=== PATIENT | male | born 1945 | race Caucasian/White ===

== ENCOUNTER 2016-12-29 12:48 | Inpatient (IN) | payer MEDICARE, MEDICAID ==
[~2016-12-29] VITALS: Ht 182.9 cm; Wt 51.5 kg
[2016-12-29] MEDS ORDERED: SODIUM CHLORIDE 0.9% 1,000 ML IVB ONE (14:19)
[2016-12-29 14:24] LABS: Basophils # (auto) 0 uL; Eosinophils # (auto) 0 uL; Hematocrit 38.1 % (41.0-53.0); Hemoglobin 12.5 g/dL (13.5-17.5); Lymphocytes # (auto) 0.3 uL; Lymphocytes % (auto) 2.3 % (10.0-50.0); Mean Corpuscular Hemoglobin 30.4 pg (28.0-32.0); Mean Corpuscular Hgb Conc. 32.9 g/dL (32.0-36.0); Mean Corpuscular Volume 92.6 fL (80.0-100.0); Mean Platelet Volume 7.9 fL (7.4-10.4); Monocytes # (auto) 0.3 uL; Monocytes % (auto) 2.8 % (0.0-12.0); Neutrophils # (auto) 10.5 uL; Neutrophils % (auto) 94.9 % (37.0-80.0); Platelet Count (auto) 436 10^3/uL (140-450); SUSPECT VIEW TRANSMISSION
[2016-12-29 15:05] LABS: Magnesium 2.4 mg/dL (1.6-2.6)
[2016-12-29 15:19] LABS: Albumin 1.4 g/dL (3.4-5.0); BUN/Creatinine Ratio 43.1; Bilirubin, Total 0.7 mg/dL (0.2-1.0); Calcium 8.4 mg/dL (8.5-10.1); Total Protein 5.9 g/dL (6.4-8.2)
[2016-12-29] MEDS ORDERED: cefTRIAXone 1GM/50ML D5W 50 ML IV ONE (15:45)
[2016-12-29] MEDS ORDERED: PROCHLORPERAZINE EDISYLATE 5 MG/ML 2ML VIAL IV PRN (16:00)
[2016-12-29] MEDS: SODIUM CHLORIDE 0.9% 1,000 ML IV SCH ×2 (16:00→18:42)
[2016-12-29] MEDS ORDERED: NITROGLYCERIN 0.4 MG SL TAB SL PRN (16:00)
[2016-12-29] MEDS ORDERED: VANCOMYCIN PER PHARMACY 0 MG IV SCH (16:00)
[2016-12-29] MEDS ORDERED: HYDROcodone-ACET 5/325MG TAB PO PRN (16:00)
[2016-12-29] MEDS ORDERED: ALBUTEROL SULF 2.5 MG/0.5ML(0.5%) NEB SOLN NEB PRN (16:00)
[2016-12-29] MEDS ORDERED: VANCOMYCIN 1GM/250ML D5W 250 ML IV ONE (16:00)
[2016-12-29] MEDS ORDERED: AZITHROMYCIN 500MG/D5W 250ML 250 ML IV ONE ×2 (16:00→17:00)
[2016-12-29] MEDS ORDERED: MORPHINE SULF INJ 2 MG/ML SYRINGE 1ML IV PRN ×2 (16:00)
[2016-12-29] MEDS ORDERED: TEMAZEPAM 15 MG CAP PO PRN (16:00)
[2016-12-29] MEDS ORDERED: PIPERACILLIN-TAZOB 3.375GM 100 ML IV ONE ×2 (16:00→20:00)
[2016-12-29] MEDS ORDERED: ACETAMINOPHEN 500 MG TAB PO PRN (16:00)
[2016-12-29] MEDS ORDERED: LORazepam 0.5 MG TAB PO PRN (16:00)
[2016-12-29] MEDS ORDERED: DEXTROSE (50%) 50ML SYRG IV PRN (16:00)
[2016-12-29 16:14] LABS: Urine Bilirubin Negative (Negative); Urine Blood Negative /uL (Negative); Urine Color Yellow (Yellow); Urine Glucose Normal (Normal); Urine Ketone Negative (Negative); Urine Mucus FEW (None Seen); Urine Nitrite Negative (Negative); Urine RBC <1 /hpf (0 - 3); Urine pH 5.5 (5.0-8.0)
[2016-12-29] MEDS: ALBUTEROL SULF 2.5 MG/0.5ML(0.5%) NEB SOLN NEB SCH (18:39)
[2016-12-29] MEDS: VANCOMYCIN 500 MG in D5W 5% 100 ML IV SCH (19:59)
[2016-12-29 22:00] VITALS: BP 80/43
[2016-12-29] MEDS ORDERED: Fibersource Hn 1 Liter PEG ONE (22:00)
[2016-12-29] MEDS ORDERED: ALBUMIN 5% 250 ML IV ONE (22:45)
[2016-12-30] MEDS: ACCU-CHEK COMFORT CURVE STRIP VI SCH ×5 (00:18→23:55)
[2016-12-30] MEDS: ALBUTEROL SULF 2.5 MG/0.5ML(0.5%) NEB SOLN NEB SCH ×5 (01:43→22:37)
[2016-12-30] MEDS: PIPERACILLIN-TAZOB 3.375GM 100 ML IV SCH ×4 (02:14→19:39)
[2016-12-30] MEDS ORDERED: SODIUM CHLORIDE 0.9% 500 ML IV ONE (02:45)
[2016-12-30 05:00] VITALS: BP 85/64
[2016-12-30 05:44] LABS: Hematocrit 27.9 % (41.0-53.0); Hemoglobin 9.2 g/dL (13.5-17.5); Mean Corpuscular Hemoglobin 30.8 pg (28.0-32.0); Mean Corpuscular Volume 93.3 fL (80.0-100.0); Mean Platelet Volume 8.3 fL (7.4-10.4); Platelet Count (auto) 325 10^3/uL (140-450); Red Cell Distribution Width 13.2 % (11.6-16.0); SUSPECT VIEW TRANSMISSION; White Blood Cell 9.1 10^3/uL (4.4-10.8)
[2016-12-30 05:50] LABS: Myelocytes % 0; Promyelocytes % 0; Reactive Lymphocytes 0
[2016-12-30 05:58] LABS: Albumin 1.3 g/dL (3.4-5.0); Calcium 7.4 mg/dL (8.5-10.1); Potassium 3.2 mmol/L (3.5-5.1)
[2016-12-30 06:02] LABS: BUN/Creatinine Ratio 43.1
[2016-12-30 06:04] LABS: Bilirubin, Total 0.5 mg/dL (0.2-1.0); Total Protein 4.8 g/dL (6.4-8.2)
[2016-12-30 09:00] VITALS: BP 98/40
[2016-12-30] MEDS: SODIUM CHLORIDE 0.9% 1,000 ML IV SCH ×2 (10:28→17:20)
[2016-12-30] MEDS ORDERED: AZITHROMYCIN 500MG/D5W 250ML 250 ML IV SCH (11:00)
[2016-12-30 12:03] LABS: Giant Platelets Few; Hypochromia Slight; Metamyelocytes % 1; Platelet Clumps FEW; Platelet Estimate Adequate
[2016-12-30] MEDS ORDERED: HYD2T GT (12:22)
[2016-12-30] MEDS ORDERED: HYDR2TAB2 PEG (12:22)
[2016-12-30] MEDS ORDERED: MISCCAP66 GT (12:24)
[2016-12-30] MEDS ORDERED: SCOP1.5D TD (12:28)
[2016-12-30 12:49] VITALS: BP 84/63
[2016-12-30] MEDS ORDERED: IPRATROPIUM BROM 0.5 MG/2.5ML INH SOL NEB SCH (14:00)
[2016-12-30] MEDS ORDERED: ALBUTEROL SULF 2.5 MG/0.5ML(0.5%) NEB SOLN NEB SCH (14:00)
[2016-12-30] MEDS ORDERED: ACETYLCYSTEINE 20%(200MG/ML) SOL 4ML NEB SCH (14:00)
[2016-12-30 16:53] VITALS: BP 87/43
[2016-12-30] MEDS: IPRATROPIUM BROM 0.5 MG/2.5ML INH SOL NEB SCH ×2 (18:16→22:37)
[2016-12-30] MEDS: VANCOMYCIN 500 MG in D5W 5% 100 ML IV SCH (19:39)
[2016-12-30 22:00] VITALS: BP 98/60
[2016-12-30] MEDS: Fibersource Hn 1 Liter GT SCH (22:21)
[2016-12-30] MEDS: ACETYLCYSTEINE 20%(200MG/ML) SOL 4ML NEB SCH (22:37)
[2016-12-31] MEDS: PIPERACILLIN-TAZOB 3.375GM 100 ML IV SCH ×4 (01:54→19:49)
[2016-12-31] MEDS: ALBUTEROL SULF 2.5 MG/0.5ML(0.5%) NEB SOLN NEB SCH ×6 (02:43→22:10)
[2016-12-31] MEDS: IPRATROPIUM BROM 0.5 MG/2.5ML INH SOL NEB SCH ×6 (02:43→22:10)
[2016-12-31 05:00] VITALS: BP 97/48
[2016-12-31 05:46] LABS: Basophils # (auto) 0 uL; Eosinophils # (auto) 0 uL; Eosinophils % (auto) 0.1 % (0.0-7.0); Hematocrit 27.2 % (41.0-53.0); Hemoglobin 8.9 g/dL (13.5-17.5); Lymphocytes # (auto) 0.3 uL; Lymphocytes % (auto) 3.2 % (10.0-50.0); Mean Corpuscular Hgb Conc. 32.7 g/dL (32.0-36.0); Mean Corpuscular Volume 91.9 fL (80.0-100.0); Monocytes # (auto) 0.1 uL; Neutrophils # (auto) 7.6 uL; Neutrophils % (auto) 95.7 % (37.0-80.0); Platelet Count (auto) 289 10^3/uL (140-450); Red Cell Distribution Width 13.1 % (11.6-16.0)
[2016-12-31 06:12] LABS: Albumin 1.2 g/dL (3.4-5.0); BUN/Creatinine Ratio 28.4; Calcium 7.6 mg/dL (8.5-10.1)
[2016-12-31] MEDS: ACCU-CHEK COMFORT CURVE STRIP VI SCH ×4 (06:13→23:50)
[2016-12-31 06:15] LABS: Bilirubin, Total 0.4 mg/dL (0.2-1.0); Total Protein 4.8 g/dL (6.4-8.2)
[2016-12-31 06:29] LABS: B-Type Natriuretic Peptide 66.35 pg/mL (0-100)
[2016-12-31 07:00] LABS: Potassium 2.7 mmol/L (3.5-5.1)
[2016-12-31] MEDS: ACETYLCYSTEINE 20%(200MG/ML) SOL 4ML NEB SCH ×3 (07:08→22:10)
[2016-12-31 07:23] LABS: Temperature: 22.7 C (20.0-25.0)
[2016-12-31 08:56] VITALS: BP 84/52
[2016-12-31] MEDS: SODIUM CHLORIDE 0.9% 1,000 ML IV SCH ×2 (09:30→21:25)
[2016-12-31] MEDS ORDERED: POTASSIUM CHL 10% (20 MEQ/15ML) ORAL SOLN GT ONE ×2 (09:45→14:00)
[2016-12-31] MEDS: Fibersource Hn 1 Liter GT SCH ×2 (10:43→22:25)
[2016-12-31 12:32] VITALS: BP 87/51
[2016-12-31] MEDS ORDERED: LACTULOSE 20Gm/30ML SOLN PO ONE (14:00)
[2016-12-31] MEDS ORDERED: LACTULOSE 20Gm/30ML SOLN PO PRN (14:00)
[2016-12-31 17:00] VITALS: BP 87/52
[2016-12-31] MEDS: PRO-STAT 64 30ML PO SCH (18:16)
[2016-12-31] MEDS: VANCOMYCIN 500 MG in D5W 5% 100 ML IV SCH (19:49)
[2016-12-31 22:00] VITALS: BP 90/50
[2016-12-31] MEDS: ASCORBIC ACID 500 MG TAB PO SCH (22:25)
[2017-01-01] MEDS: IPRATROPIUM BROM 0.5 MG/2.5ML INH SOL NEB SCH ×6 (02:21→22:08)
[2017-01-01] MEDS: ALBUTEROL SULF 2.5 MG/0.5ML(0.5%) NEB SOLN NEB SCH ×6 (02:21→22:08)
[2017-01-01] MEDS: PIPERACILLIN-TAZOB 3.375GM 100 ML IV SCH ×4 (03:33→20:39)
[2017-01-01 05:00] VITALS: BP 89/47
[2017-01-01] MEDS: ACCU-CHEK COMFORT CURVE STRIP VI SCH ×3 (05:44→18:13)
[2017-01-01] MEDS: ACETYLCYSTEINE 20%(200MG/ML) SOL 4ML NEB SCH ×3 (06:00→22:08)
[2017-01-01 06:13] LABS: Basophils # (auto) 0 uL; Basophils % (auto) 0.1 % (0.0-2.0); Eosinophils # (auto) 0 uL; Eosinophils % (auto) 0.2 % (0.0-7.0); Hematocrit 28.2 % (41.0-53.0); Hemoglobin 9.2 g/dL (13.5-17.5); Lymphocytes # (auto) 0.4 uL; Lymphocytes % (auto) 5.8 % (10.0-50.0); Mean Corpuscular Hemoglobin 30.3 pg (28.0-32.0); Mean Corpuscular Hgb Conc. 32.8 g/dL (32.0-36.0); Mean Corpuscular Volume 92.4 fL (80.0-100.0); Mean Platelet Volume 8.1 fL (7.4-10.4); Monocytes # (auto) 0 uL; Monocytes % (auto) 0.3 % (0.0-12.0); Neutrophils # (auto) 6.1 uL; Neutrophils % (auto) 93.6 % (37.0-80.0); Platelet Count (auto) 292 10^3/uL (140-450); Red Cell Distribution Width 13.1 % (11.6-16.0); White Blood Cell 6.5 10^3/uL (4.4-10.8)
[2017-01-01 06:31] LABS: BUN/Creatinine Ratio 32.4; Calcium 7.9 mg/dL (8.5-10.1); Potassium 3.6 mmol/L (3.5-5.1)
[2017-01-01 08:25] VITALS: BP 91/50
[2017-01-01 09:00] VITALS: BP 91/50
[2017-01-01] MEDS: ASCORBIC ACID 500 MG TAB PO SCH ×2 (10:00→22:00)
[2017-01-01] MEDS: MULTIPLE VITAMIN TAB PO SCH (10:00)
[2017-01-01] MEDS: SODIUM CHLORIDE 0.9% 1,000 ML IV SCH ×2 (10:31→22:16)
[2017-01-01] MEDS: Fibersource Hn 1 Liter GT SCH ×2 (11:06→22:00)
[2017-01-01] MEDS: PRO-STAT 64 30ML PO SCH ×2 (11:06→18:00)
[2017-01-01 12:51] VITALS: BP 105/54
[2017-01-01 16:52] VITALS: BP 81/47
[2017-01-01 21:59] VITALS: BP 91/49
[2017-01-02] VITALS (7 sets, daily range): BP systolic 81–101; BP diastolic 47–63
[2017-01-02] MEDS: ACCU-CHEK COMFORT CURVE STRIP VI SCH ×3 (00:13→11:52)
[2017-01-02] MEDS: PIPERACILLIN-TAZOB 3.375GM 100 ML IV SCH ×2 (01:27→09:28)
[2017-01-02] MEDS: ALBUTEROL SULF 2.5 MG/0.5ML(0.5%) NEB SOLN NEB SCH ×6 (02:30→22:51)
[2017-01-02] MEDS: IPRATROPIUM BROM 0.5 MG/2.5ML INH SOL NEB SCH ×6 (02:30→22:51)
[2017-01-02] MEDS: ACETYLCYSTEINE 20%(200MG/ML) SOL 4ML NEB SCH ×3 (05:54→22:52)
[2017-01-02 06:05] LABS: Basophils # (auto) 0 uL; Eosinophils # (auto) 0 uL; Eosinophils % (auto) 0.3 % (0.0-7.0); Hematocrit 29.7 % (41.0-53.0); Hemoglobin 9.7 g/dL (13.5-17.5); Lymphocytes # (auto) 0.4 uL; Lymphocytes % (auto) 6.3 % (10.0-50.0); Mean Corpuscular Hemoglobin 30.2 pg (28.0-32.0); Mean Corpuscular Hgb Conc. 32.7 g/dL (32.0-36.0); Mean Corpuscular Volume 92.2 fL (80.0-100.0); Mean Platelet Volume 7.9 fL (7.4-10.4); Monocytes # (auto) 0.1 uL; Monocytes % (auto) 0.8 % (0.0-12.0); Neutrophils % (auto) 92.6 % (37.0-80.0); Platelet Count (auto) 259 10^3/uL (140-450); White Blood Cell 6.5 10^3/uL (4.4-10.8)
[2017-01-02] MEDS: PRO-STAT 64 30ML PO SCH ×2 (08:00→18:00)
[2017-01-02] MEDS: MULTIPLE VITAMIN TAB PO SCH (09:28)
[2017-01-02] MEDS: Fibersource Hn 1 Liter GT SCH ×2 (09:29→22:00)
[2017-01-02] MEDS: ASCORBIC ACID 500 MG TAB PO SCH ×2 (10:00→22:43)
[2017-01-02] MEDS: LEVOFLOXACIN 500MG 100 ML IV SCH (11:07)
[2017-01-02] MEDS: SODIUM CHLORIDE 0.9% 1,000 ML IV SCH (13:13)
[2017-01-02] MEDS: methylPREDNISolone SOD SUCC 40 MG/ML VL IV SCH (22:44)
[2017-01-03] MEDS: SODIUM CHLORIDE 0.9% 1,000 ML IV SCH ×2 (02:31→18:35)
[2017-01-03] MEDS: ALBUTEROL SULF 2.5 MG/0.5ML(0.5%) NEB SOLN NEB SCH ×6 (02:36→22:22)
[2017-01-03] MEDS: IPRATROPIUM BROM 0.5 MG/2.5ML INH SOL NEB SCH ×6 (02:36→22:22)
[2017-01-03 05:00] VITALS: BP 88/51
[2017-01-03] MEDS: ACETYLCYSTEINE 20%(200MG/ML) SOL 4ML NEB SCH ×2 (06:13→22:23)
[2017-01-03] MEDS: PRO-STAT 64 30ML PO SCH ×2 (08:00→18:00)
[2017-01-03 09:00] VITALS: BP 123/67
[2017-01-03] MEDS: ASCORBIC ACID 500 MG TAB PO SCH ×2 (10:00→21:13)
[2017-01-03] MEDS: MULTIPLE VITAMIN TAB PO SCH (10:00)
[2017-01-03] MEDS: Fibersource Hn 1 Liter GT SCH ×2 (10:54→21:13)
[2017-01-03] MEDS: FAMOTIDINE (10MG/ML) 2ML VL IV SCH (10:55)
[2017-01-03] MEDS: methylPREDNISolone SOD SUCC 40 MG/ML VL IV SCH ×2 (10:55→21:12)
[2017-01-03] MEDS: LEVOFLOXACIN 500MG 100 ML IV SCH (10:55)
[2017-01-03 13:00] VITALS: BP 99/52
[2017-01-03 16:27] VITALS: BP 121/75
[2017-01-03 21:44] VITALS: BP 100/56
[2017-01-04] MEDS: ALBUTEROL SULF 2.5 MG/0.5ML(0.5%) NEB SOLN NEB SCH ×4 (02:26→14:04)
[2017-01-04] MEDS: IPRATROPIUM BROM 0.5 MG/2.5ML INH SOL NEB SCH ×4 (02:26→14:04)
[2017-01-04 04:48] VITALS: BP 95/63
[2017-01-04] MEDS: SODIUM CHLORIDE 0.9% 1,000 ML IV SCH (05:11)
[2017-01-04 05:59] LABS: Basophils # (auto) 0 uL; Eosinophils # (auto) 0 uL; Eosinophils % (auto) 0.1 % (0.0-7.0); Hematocrit 29.7 % (41.0-53.0); Hemoglobin 9.6 g/dL (13.5-17.5); Lymphocytes # (auto) 0.3 uL; Lymphocytes % (auto) 7.8 % (10.0-50.0); Mean Corpuscular Hgb Conc. 32.3 g/dL (32.0-36.0); Mean Corpuscular Volume 92.8 fL (80.0-100.0); Mean Platelet Volume 7.8 fL (7.4-10.4); Monocytes # (auto) 0.2 uL; Monocytes % (auto) 3.6 % (0.0-12.0); Neutrophils # (auto) 3.8 uL; Neutrophils % (auto) 88.5 % (37.0-80.0); Platelet Count (auto) 259 10^3/uL (140-450); White Blood Cell 4.4 10^3/uL (4.4-10.8)
[2017-01-04 06:22] LABS: BUN/Creatinine Ratio 29.6; Magnesium 2.1 mg/dL (1.6-2.6); Potassium 4.4 mmol/L (3.5-5.1)
[2017-01-04] MEDS: ACETYLCYSTEINE 20%(200MG/ML) SOL 4ML NEB SCH ×2 (06:29→14:04)
[2017-01-04] MEDS: PRO-STAT 64 30ML PO SCH (08:00)
[2017-01-04 09:00] VITALS: BP 99/53
[2017-01-04] MEDS: LEVOFLOXACIN 500MG 100 ML IV SCH (09:57)
[2017-01-04] MEDS: ASCORBIC ACID 500 MG TAB PO SCH (09:57)
[2017-01-04] MEDS: methylPREDNISolone SOD SUCC 40 MG/ML VL IV SCH (09:57)
[2017-01-04] MEDS: Fibersource Hn 1 Liter GT SCH (09:57)
[2017-01-04] MEDS: FAMOTIDINE (10MG/ML) 2ML VL IV SCH (09:57)
[2017-01-04] MEDS: MULTIPLE VITAMIN TAB PO SCH (09:57)
[2017-01-04 10:19] VITALS: BP 95/63
[2017-01-04] MEDS ORDERED: SACC250C PO (11:32)
[2017-01-04] MEDS ORDERED: LEVO500T3 PO (11:32)
[2017-01-04 13:00] VITALS: BP 103/57
[2017-01-04 13:30] VITALS: BP 99/53
[2017-01-04] MEDS ORDERED: PRENATAL VITAMIN TAB PO SCH (22:00)
[2017-01-05] MEDS ORDERED: FAMOTIDINE 20 MG TAB PO SCH (10:00)
[2017-01-05] MEDS ORDERED: FLORASTOR (S. BOULARDII) 250 MG CAP PO SCH (10:00)
[2017-01-05] MEDS ORDERED: LEVOFLOXACIN 500 MG TAB PO SCH (10:00)
== END 2017-01-04 17:19 | DRG 871 ==
LOC: ER 12:48 → TELE 12:49 → TELE-WESTW 17:23
PROVIDERS: ADMIT Internal Medicine; ATTEND Internal Medicine
DX: A41.9 Sepsis, unspecified organism (principal); E43 Unspecified severe protein-calorie malnutrition; J96.01 Acute respiratory failure with hypoxia; J15.8 Pneumonia due to other specified bacteria; E87.1 Hypo-osmolality and hyponatremia; J44.0 Chronic obstructive pulmonary disease with (acute) lower respiratory infection; Z68.1 Body mass index [BMI] 19.9 or less, adult; L89.152 Pressure ulcer of sacral region, stage 2; R13.10 Dysphagia, unspecified; E86.0 Dehydration; E87.6 Hypokalemia; D63.8 Anemia in other chronic diseases classified elsewhere; Z82.49 Family history of ischemic heart disease and other diseases of the circulatory system; Z83.3 Family history of diabetes mellitus; Z93.1 Gastrostomy status; Z92.3 Personal history of irradiation; Z85.819 Personal history of malignant neoplasm of unspecified site of lip, oral cavity, and pharynx; Z80.9 Family history of malignant neoplasm, unspecified
CPT/HCPCS: 36415; 71010; 71020; 80048; 80053; 80320; 81001; 82140; 82270; 82962; 83036; 83605; 83735; 83880; 84443; 84484; 85007; 85025; 85027; 87040; 87070; 87077; 87186; 87205; 92610; 93005; 94640; 94761; 96361; 96365; 96367; 97001; 97530; J0696; J1956; J2543; J3490; J7060

== ENCOUNTER 2017-02-04 19:04 | Inpatient (IN) | payer MEDICARE, MEDICAID ==
[~2017-02-04] VITALS: Ht 182.9 cm; Wt 54.8 kg
[~2017-02-04 19:04] MED LIST: HYDR2TAB2 PEG; LEVO500T3 PO; MISCCAP66 GT; SACC250C PO; SCOP1.5D TD
[2017-02-04] MEDS ORDERED: IOHEXOL 300 MG/ML 100ML BOTTLE IJ ONE (20:46)
[2017-02-04 21:03] LABS: Basophils # (auto) 0 uL; Basophils % (auto) 0.6 % (0.0-2.0); Eosinophils # (auto) 0 uL; Eosinophils % (auto) 0.2 % (0.0-7.0); Hematocrit 28.7 % (41.0-53.0); Hemoglobin 9.5 g/dL (13.5-17.5); Lymphocytes # (auto) 0.7 uL; Lymphocytes % (auto) 11.2 % (10.0-50.0); Mean Corpuscular Hemoglobin 29.9 pg (28.0-32.0); Mean Corpuscular Volume 90.5 fL (80.0-100.0); Mean Platelet Volume 7.1 fL (7.4-10.4); Monocytes # (auto) 0.5 uL; Monocytes % (auto) 8.4 % (0.0-12.0); Neutrophils # (auto) 5.2 uL; Neutrophils % (auto) 79.6 % (37.0-80.0); Platelet Count (auto) 551 10^3/uL (140-450); Red Cell Distribution Width 15.2 % (11.6-16.0); White Blood Cell 6.5 10^3/uL (4.4-10.8)
[2017-02-04] MEDS ORDERED: methylPREDNISolone SOD SUCC 125 MG/2 ML VL IV ONE (21:15)
[2017-02-04] MEDS ORDERED: IPRATROPIUM BROM 0.5 MG/2.5ML INH SOL NEB ONE (21:15)
[2017-02-04] MEDS ORDERED: SODIUM CHLORIDE 0.9% 1,000 ML IV ONE (21:15)
[2017-02-04] MEDS ORDERED: ALBUTEROL SULF 2.5 MG/0.5ML(0.5%) NEB SOLN NEB ONE (21:15)
[2017-02-04] MEDS ORDERED: cefTRIAXone 1GM/50ML D5W 50 ML IV ONE (21:15)
[2017-02-04 21:24] LABS: Albumin 1.9 g/dL (3.4-5.0); BUN/Creatinine Ratio 25.8; Bilirubin, Total 0.5 mg/dL (0.2-1.0); Calcium 8.6 mg/dL (8.5-10.1); Potassium 3.8 mmol/L (3.5-5.1); Total Protein 6.8 g/dL (6.4-8.2)
[2017-02-04 21:28] LABS: INR 1.13 (0.9-1.15); Partial Thromboplastin Time 30.9 sec (22.64-33.71); Prothrombin Time 12.3 sec (9.37-12.3)
[2017-02-05] VITALS (8 sets, daily range): BP systolic 89–114; BP diastolic 54–75
[2017-02-05] MEDS ORDERED: SODIUM CHLORIDE 0.9% 1,000 ML IV SCH (00:24)
[2017-02-05] MEDS ORDERED: HYDROcodone-ACET 5/325MG TAB PO PRN (00:30)
[2017-02-05] MEDS ORDERED: TEMAZEPAM 15 MG CAP PO PRN (00:30)
[2017-02-05] MEDS ORDERED: ACETAMINOPHEN 325 MG TAB PO PRN (00:30)
[2017-02-05] MEDS ORDERED: PANTOPRAZOLE SODIUM 40 MG/10 ML VIAL IV ONE (00:30)
[2017-02-05] MEDS ORDERED: MORPHINE SULF INJ 2 MG/ML SYRINGE 1ML IV PRN ×2 (00:30)
[2017-02-05] MEDS ORDERED: NITROGLYCERIN 0.4 MG SL TAB SL PRN (00:30)
[2017-02-05] MEDS: LEVOFLOXACIN 500MG 100 ML IV SCH (01:07)
[2017-02-05] MEDS: ALBUTEROL SULF 2.5 MG/0.5ML(0.5%) NEB SOLN NEB PRN ×5 (03:22→22:49)
[2017-02-05] MEDS: ACETYLCYSTEINE 10 %(100MG/ML) SOL 4ML NEB SCH ×6 (03:22→22:50)
[2017-02-05] MEDS: HYDROmorphone HCL 2 MG TAB PO SCH ×2 (05:15→11:54)
[2017-02-05] MEDS ORDERED: methylPREDNISolone SOD SUCC 125 MG/2 ML VL IV SCH (10:00)
[2017-02-05] MEDS ORDERED: LEVOFLOXACIN 500MG 100 ML IV SCH (10:00)
[2017-02-05] MEDS: PANTOPRAZOLE SODIUM 40 MG/10 ML VIAL IV SCH (10:13)
[2017-02-05] MEDS: ENOXAPARIN SOD 40 MG/0.4 ML SYRINGE SC SCH (10:13)
[2017-02-05] MEDS ORDERED: PPN PER PHARMACY 0 ML IV SCH (14:15)
[2017-02-05 15:34] LABS: Magnesium 2.2 mg/dL (1.6-2.6); Phosphorus 3.8 mg/dL (2.5-4.90)
[2017-02-05] MEDS ORDERED: DEXTROSE (50%) 50ML SYRG IV SCH (16:15)
[2017-02-05] MEDS ORDERED: TPN PER PHARMACY 0 ML IV SCH (17:30)
[2017-02-05] MEDS: InsuLIN REG 1unit/0.01ml Soln (100units/ml) SC SCH (18:00)
[2017-02-05] MEDS: ACCU-CHEK COMFORT CURVE STRIP VI SCH (18:07)
[2017-02-05] MEDS ORDERED: CLINIMIX PER PHARMACY IV NR (20:00)
[2017-02-05] MEDS: IPRATROPIUM BROM 0.5 MG/2.5ML INH SOL NEB PRN (22:49)
[2017-02-05] MEDS: CLINDAMYCIN 600MG IV 50 ML IV SCH (23:29)
[2017-02-06] MEDS: ACCU-CHEK COMFORT CURVE STRIP VI SCH ×4 (00:03→17:29)
[2017-02-06] MEDS: ACETYLCYSTEINE 10 %(100MG/ML) SOL 4ML NEB SCH ×6 (02:00→22:05)
[2017-02-06] MEDS: LEVOFLOXACIN 500MG 100 ML IV SCH (02:12)
[2017-02-06 05:00] VITALS: BP 104/48
[2017-02-06] MEDS: InsuLIN REG 1unit/0.01ml Soln (100units/ml) SC SCH ×4 (05:36→17:29)
[2017-02-06] MEDS: CLINDAMYCIN 600MG IV 50 ML IV SCH ×3 (05:36→21:46)
[2017-02-06] MEDS: IPRATROPIUM BROM 0.5 MG/2.5ML INH SOL NEB PRN ×4 (05:58→22:05)
[2017-02-06] MEDS: ALBUTEROL SULF 2.5 MG/0.5ML(0.5%) NEB SOLN NEB PRN ×4 (05:58→22:05)
[2017-02-06 06:00] LABS: Basophils # (auto) 0 uL; DEFINITIVE VIEW TRANSMISSION; Eosinophils # (auto) 0 uL; Hematocrit 24.4 % (41.0-53.0); Hemoglobin 8.1 g/dL (13.5-17.5); Lymphocytes # (auto) 0.5 uL; Lymphocytes % (auto) 6.3 % (10.0-50.0); Mean Corpuscular Hemoglobin 30.2 pg (28.0-32.0); Mean Corpuscular Volume 91.4 fL (80.0-100.0); Monocytes # (auto) 0.6 uL; Monocytes % (auto) 7.1 % (0.0-12.0); Neutrophils # (auto) 7.3 uL; Neutrophils % (auto) 86.6 % (37.0-80.0); Platelet Count (auto) 562 10^3/uL (140-450); White Blood Cell 8.5 10^3/uL (4.4-10.8)
[2017-02-06 06:15] LABS: Albumin 1.8 g/dL (3.4-5.0); BUN/Creatinine Ratio 27.8; Bilirubin, Total 0.3 mg/dL (0.2-1.0); Calcium 8.1 mg/dL (8.5-10.1); Magnesium 2.1 mg/dL (1.6-2.6); Phosphorus 3.3 mg/dL (2.5-4.90); Potassium 3.5 mmol/L (3.5-5.1); Total Protein 6.3 g/dL (6.4-8.2)
[2017-02-06 07:07] LABS: Urine RBC None Seen /hpf (0 - 3)
[2017-02-06 07:20] LABS: Urine Bilirubin Negative (Negative); Urine Blood Negative /uL (Negative); Urine Color Yellow (Yellow); Urine Glucose Normal (Normal); Urine Hyaline Cast FEW /lpf (0 - 2); Urine Mucus FEW (None Seen); Urine Nitrite Negative (Negative); Urine Urobilinogen Normal (Negative); Urine pH 5.5 (5.0-8.0)
[2017-02-06 07:23] LABS: Urine Ketone 1+ (Negative)
[2017-02-06 07:30] VITALS: BP 89/56
[2017-02-06 07:55] VITALS: BP 120/59
[2017-02-06] MEDS: PANTOPRAZOLE SODIUM 40 MG/10 ML VIAL IV SCH (09:25)
[2017-02-06] MEDS: ENOXAPARIN SOD 40 MG/0.4 ML SYRINGE SC SCH (09:26)
[2017-02-06 12:07] VITALS: BP 104/50
[2017-02-06] MEDS ORDERED: TPN PER PHARMACY 0 ML IV SCH (14:30)
[2017-02-06] MEDS ORDERED: LIDOCAINE 1% HCL (LOCAL ANESTH.) INJ 20ML MDV ID ONE (16:00)
[2017-02-06 16:28] VITALS: BP 104/59
[2017-02-06] MEDS ORDERED: PPN PER PHARMACY IV NR ×9 (20:00)
[2017-02-06] MEDS: SODIUM CHLOR 0.9% PF (SALINE LOCK) 10ML VIAL IV SCH (21:47)
[2017-02-06 22:00] VITALS: BP 97/43
[2017-02-07] VITALS (7 sets, daily range): BP systolic 82–99; BP diastolic 45–55
[2017-02-07] MEDS: LEVOFLOXACIN 500MG 100 ML IV SCH (00:52)
[2017-02-07] MEDS: IPRATROPIUM BROM 0.5 MG/2.5ML INH SOL NEB PRN ×6 (02:01→22:50)
[2017-02-07] MEDS: ACETYLCYSTEINE 10 %(100MG/ML) SOL 4ML NEB SCH ×6 (02:01→22:50)
[2017-02-07] MEDS: ALBUTEROL SULF 2.5 MG/0.5ML(0.5%) NEB SOLN NEB PRN ×6 (02:02→22:50)
[2017-02-07] MEDS: InsuLIN REG 1unit/0.01ml Soln (100units/ml) SC SCH ×4 (06:00→18:00)
[2017-02-07] MEDS: ACCU-CHEK COMFORT CURVE STRIP VI SCH ×4 (06:06→20:14)
[2017-02-07] MEDS: CLINDAMYCIN 600MG IV 50 ML IV SCH ×3 (06:06→22:39)
[2017-02-07 07:32] LABS: Albumin 1.9 g/dL (3.4-5.0); BUN/Creatinine Ratio 31.8; Bilirubin, Total 0.3 mg/dL (0.2-1.0); Calcium 7.8 mg/dL (8.5-10.1); Magnesium 1.8 mg/dL (1.6-2.6); Total Protein 6.6 g/dL (6.4-8.2)
[2017-02-07 07:34] LABS: Potassium 2.6 mmol/L (3.5-5.1)
[2017-02-07] MEDS ORDERED: SODIUM PHOSP 20MEQ(15MMOL) IN NS 100 ML IV ONE (08:45)
[2017-02-07] MEDS: POTASSIUM CHL 20MEQ/100ML 100 ML IV SCH ×4 (09:39→20:14)
[2017-02-07] MEDS: PANTOPRAZOLE SODIUM 40 MG/10 ML VIAL IV SCH (09:40)
[2017-02-07] MEDS: ENOXAPARIN SOD 40 MG/0.4 ML SYRINGE SC SCH (09:41)
[2017-02-07] MEDS: SODIUM CHLOR 0.9% PF (SALINE LOCK) 10ML VIAL IV SCH ×2 (12:23→22:00)
[2017-02-07] MEDS: guaiFENesin 200 MG/10 ML UD PO PRN (14:21)
[2017-02-07] MEDS ORDERED: TPN PER PHARMACY IV NR ×10 (20:00)
[2017-02-08] MEDS: LEVOFLOXACIN 500MG 100 ML IV SCH (00:38)
[2017-02-08] MEDS: ACETYLCYSTEINE 10 %(100MG/ML) SOL 4ML NEB SCH ×3 (02:00→11:53)
[2017-02-08 05:00] VITALS: BP 82/44
[2017-02-08] MEDS: CLINDAMYCIN 600MG IV 50 ML IV SCH (05:30)
[2017-02-08] MEDS: ACCU-CHEK COMFORT CURVE STRIP VI SCH ×2 (05:34)
[2017-02-08] MEDS: InsuLIN REG 1unit/0.01ml Soln (100units/ml) SC SCH ×2 (05:34)
[2017-02-08 06:17] LABS: Albumin 1.8 g/dL (3.4-5.0); BUN/Creatinine Ratio 36.2; Bilirubin, Total 0.5 mg/dL (0.2-1.0); Calcium 8.1 mg/dL (8.5-10.1); Phosphorus 1.9 mg/dL (2.5-4.90); Potassium 3.9 mmol/L (3.5-5.1); Total Protein 6.5 g/dL (6.4-8.2)
[2017-02-08] MEDS: IPRATROPIUM BROM 0.5 MG/2.5ML INH SOL NEB PRN ×2 (06:32→11:53)
[2017-02-08] MEDS: ALBUTEROL SULF 2.5 MG/0.5ML(0.5%) NEB SOLN NEB PRN ×2 (06:32→11:53)
[2017-02-08] MEDS ORDERED: PRO-STAT 64 30ML PO SCH (08:00)
[2017-02-08] MEDS ORDERED: SODIUM PHOSP 20MEQ(15MMOL) IN NS 100 ML IV ONE (08:45)
[2017-02-08 09:18] VITALS: BP 102/43
[2017-02-08] MEDS ORDERED: NS IV ONE (09:30)
[2017-02-08] MEDS ORDERED: SODIUM PHOSPH IV ONE (09:30)
[2017-02-08] MEDS: guaiFENesin 200 MG/10 ML UD PO PRN (09:30)
[2017-02-08] MEDS: ENOXAPARIN SOD 40 MG/0.4 ML SYRINGE SC SCH (09:32)
[2017-02-08] MEDS: SODIUM CHLOR 0.9% PF (SALINE LOCK) 10ML VIAL IV SCH (09:32)
[2017-02-08] MEDS: PANTOPRAZOLE SODIUM 40 MG/10 ML VIAL IV SCH (09:32)
[2017-02-08] MEDS ORDERED: Boost Breeze 8 Ounces PO SCH (12:00)
[2017-02-08 12:56] VITALS: BP 106/54
[2017-02-08] MEDS ORDERED: TPN PER PHARMACY IV NR ×10 (20:00)
== END 2017-02-08 14:00 | DRG 177 ==
LOC: ER 19:11 → TELE 19:13 → TELE-EAST 02-05 01:21
PROVIDERS: ADMIT Internal Medicine; ATTEND Internal Medicine
DX: J69.0 Pneumonitis due to inhalation of food and vomit (principal); E43 Unspecified severe protein-calorie malnutrition; R64 Cachexia; J90 Pleural effusion, not elsewhere classified; Z68.1 Body mass index [BMI] 19.9 or less, adult; J96.10 Chronic respiratory failure, unspecified whether with hypoxia or hypercapnia; R62.7 Adult failure to thrive; Z85.819 Personal history of malignant neoplasm of unspecified site of lip, oral cavity, and pharynx; Z80.0 Family history of malignant neoplasm of digestive organs; Z83.3 Family history of diabetes mellitus; Z82.49 Family history of ischemic heart disease and other diseases of the circulatory system
CPT/HCPCS: 36415; 36569; 70491; 71010; 71250; 80053; 81001; 82040; 82962; 83735; 84100; 84478; 85025; 85610; 85730; 87081; 94640; 94761; 96365; 96367; 96375; 97116; 97530; C9113; J0696; J1815; J1956; J3480; J3490; J7131

== ENCOUNTER 2017-02-14 00:05 | Inpatient (IN) | payer MEDICARE, MEDICAID ==
[~2017-02-14] VITALS: Ht 183.5 cm; Wt 50.7 kg
[~2017-02-14 00:05] MED LIST changes: -HYDR2TAB2 PEG; +LEVO500T21 PO; -LEVO500T3 PO; -MISCCAP66 GT; -SCOP1.5D TD
[2017-02-14] MEDS ORDERED: SODIUM CHLORIDE 0.9% 1,000 ML IV ONE (02:00)
[2017-02-14] MEDS ORDERED: ONDANSETRON HCL 4 MG/2 ML VIAL IV PRN (05:00)
[2017-02-14] MEDS ORDERED: HYDROcodone-ACET 5/325MG TAB PO PRN (05:00)
[2017-02-14] MEDS ORDERED: ACETAMINOPHEN 325 MG TAB PO PRN (05:00)
[2017-02-14] MEDS: SODIUM CHLORIDE 0.9% 1,000 ML IV SCH ×2 (05:15→21:47)
[2017-02-14] MEDS ORDERED: ALBUMIN 5% 250 ML IV ONE (05:30)
[2017-02-14 08:00] VITALS: BP 126/46
[2017-02-14] MEDS: PANTOPRAZOLE SODIUM 40 MG/10 ML VIAL IV SCH (09:46)
[2017-02-14] MEDS ORDERED: ENOXAPARIN SOD 30 MG/0.3 ML SYRINGE SC SCH (10:00)
[2017-02-14] MEDS: MIDODRINE HCL 10 MG TAB PO SCH ×2 (10:00→21:47)
[2017-02-14] MEDS: ENOXAPARIN SOD 40 MG/0.4 ML SYRINGE SC SCH (10:05)
[2017-02-14 12:39] VITALS: BP 93/40
[2017-02-14] MEDS ORDERED: TPN PER PHARMACY 0 ML IV SCH (13:30)
[2017-02-14 15:39] LABS: Basophils # (auto) 0.1 uL; Basophils % (auto) 0.7 % (0.0-2.0); DEFINITIVE VIEW TRANSMISSION; Eosinophils # (auto) 0 uL; Eosinophils % (auto) 0.2 % (0.0-7.0); Hematocrit 24.9 % (41.0-53.0); Hemoglobin 8.3 g/dL (13.5-17.5); Lymphocytes # (auto) 0.8 uL; Lymphocytes % (auto) 10.4 % (10.0-50.0); Mean Corpuscular Hemoglobin 30.1 pg (28.0-32.0); Mean Corpuscular Hgb Conc. 33.4 g/dL (32.0-36.0); Mean Corpuscular Volume 90.2 fL (80.0-100.0); Mean Platelet Volume 7.4 fL (7.4-10.4); Monocytes # (auto) 0.6 uL; Monocytes % (auto) 7.2 % (0.0-12.0); Neutrophils # (auto) 6.3 uL; Neutrophils % (auto) 81.5 % (37.0-80.0); Platelet Count (auto) 433 10^3/uL (140-450); Red Cell Distribution Width 16.3 % (11.6-16.0); White Blood Cell 7.8 10^3/uL (4.4-10.8)
[2017-02-14 15:56] LABS: Albumin 1.8 g/dL (3.4-5.0); BUN/Creatinine Ratio 47.2; Bilirubin, Total 0.6 mg/dL (0.2-1.0); Calcium 7.9 mg/dL (8.5-10.1); Magnesium 2.2 mg/dL (1.6-2.6); Phosphorus 2.8 mg/dL (2.5-4.90); Potassium 3.9 mmol/L (3.5-5.1); Total Protein 6.2 g/dL (6.4-8.2)
[2017-02-14 16:02] LABS: INR 1.21 (0.9-1.15); Prothrombin Time 13.2 sec (9.37-12.3)
[2017-02-14 17:00] VITALS: BP 84/44
[2017-02-14] MEDS: InsuLIN REG 1unit/0.01ml Soln (100units/ml) SC SCH ×2 (18:00→23:33)
[2017-02-14] MEDS ORDERED: DEXTROSE (50%) 50ML SYRG IV SCH (18:00)
[2017-02-14] MEDS: ACCU-CHEK COMFORT CURVE STRIP VI SCH ×2 (18:17→23:32)
[2017-02-14] MEDS ORDERED: CLINIMIX PER PHARMACY IV NR ×5 (20:00)
[2017-02-14 21:40] VITALS: BP 75/41
[2017-02-14] MEDS ORDERED: ALBUTEROL SULF 2.5 MG/0.5ML(0.5%) NEB SOLN ONE (23:04)
[2017-02-14] MEDS: ALBUTEROL SULF 2.5 MG/0.5ML(0.5%) NEB SOLN NEB PRN (23:19)
[2017-02-15] VITALS (8 sets, daily range): BP systolic 83–109; BP diastolic 40–55
[2017-02-15] MEDS: InsuLIN REG 1unit/0.01ml Soln (100units/ml) SC SCH ×4 (05:56→21:50)
[2017-02-15] MEDS: ACCU-CHEK COMFORT CURVE STRIP VI SCH ×4 (05:56→21:51)
[2017-02-15 07:42] LABS: Basophils # (auto) 0 uL; Basophils % (auto) 0.4 % (0.0-2.0); Eosinophils # (auto) 0 uL; Eosinophils % (auto) 0.3 % (0.0-7.0); Hematocrit 26.4 % (41.0-53.0); Hemoglobin 8.8 g/dL (13.5-17.5); Lymphocytes # (auto) 0.7 uL; Lymphocytes % (auto) 9.7 % (10.0-50.0); Mean Corpuscular Hemoglobin 30.3 pg (28.0-32.0); Mean Corpuscular Hgb Conc. 33.3 g/dL (32.0-36.0); Mean Platelet Volume 7.2 fL (7.4-10.4); Monocytes # (auto) 0.6 uL; Monocytes % (auto) 7.5 % (0.0-12.0); Neutrophils # (auto) 6.2 uL; Neutrophils % (auto) 82.1 % (37.0-80.0); Platelet Count (auto) 451 10^3/uL (140-450); Red Cell Distribution Width 16.3 % (11.6-16.0); White Blood Cell 7.5 10^3/uL (4.4-10.8)
[2017-02-15 07:58] LABS: Albumin 1.9 g/dL (3.4-5.0); BUN/Creatinine Ratio 36.5; Bilirubin, Total 0.6 mg/dL (0.2-1.0); Calcium 8.2 mg/dL (8.5-10.1); Phosphorus 3.5 mg/dL (2.5-4.90); Total Protein 6.3 g/dL (6.4-8.2)
[2017-02-15] MEDS ORDERED: SODIUM CHLORIDE LOCK 10 ML ONE (08:37)
[2017-02-15] MEDS ORDERED: LIDOCAINE VISCOUS 2% 15ML UD ONE (08:37)
[2017-02-15] MEDS ORDERED: diphenhdrAMINE HCL 50 MG/1 ML VL ONE (08:38)
[2017-02-15] MEDS: MIDODRINE HCL 10 MG TAB PO SCH ×2 (10:00→21:48)
[2017-02-15] MEDS: ENOXAPARIN SOD 40 MG/0.4 ML SYRINGE SC SCH (10:00)
[2017-02-15] MEDS: PANTOPRAZOLE SODIUM 40 MG/10 ML VIAL IV SCH (10:00)
[2017-02-15] MEDS: fentaNYL CITRATE 100 MCG/2 ML VL ONE ×2 (11:03→11:07)
[2017-02-15] MEDS: MIDAZOLAM HCL 5 MG/ML-1ML VIAL ONE ×2 (11:03→11:07)
[2017-02-15] MEDS ORDERED: ceFAZolin 1GM/50ML D5W 50 ML IV ONE ×2 (11:30)
[2017-02-15] MEDS: ALBUTEROL SULF 2.5 MG/0.5ML(0.5%) NEB SOLN NEB PRN (15:02)
[2017-02-15] MEDS ORDERED: TPN PER PHARMACY IV NR ×10 (20:00)
[2017-02-16 05:07] VITALS: BP 93/44
[2017-02-16] MEDS: ACCU-CHEK COMFORT CURVE STRIP VI SCH ×2 (05:54→11:58)
[2017-02-16] MEDS: InsuLIN REG 1unit/0.01ml Soln (100units/ml) SC SCH ×2 (05:55→11:58)
[2017-02-16 09:00] VITALS: BP 92/41
[2017-02-16] MEDS: PANTOPRAZOLE SODIUM 40 MG/10 ML VIAL IV SCH (09:17)
[2017-02-16] MEDS: ENOXAPARIN SOD 40 MG/0.4 ML SYRINGE SC SCH (09:17)
[2017-02-16] MEDS: MIDODRINE HCL 10 MG TAB PO SCH (09:17)
[2017-02-16] MEDS: ALBUTEROL SULF 2.5 MG/0.5ML(0.5%) NEB SOLN NEB PRN (10:49)
[2017-02-16] MEDS ORDERED: Fibersource Hn 1 Liter GT SCH (11:15)
[2017-02-16 13:00] VITALS: BP 89/49
[2017-02-16 13:34] VITALS: BP 89/49
[2017-02-16] MEDS ORDERED: TPN PER PHARMACY IV NR ×10 (20:00)
== END 2017-02-16 20:05 | DRG 393 ==
LOC: ER 00:05 → OVERFLOW 00:06 → WEST WING 07:22
PROVIDERS: ADMIT Internal Medicine; ATTEND Internal Medicine
PROC: 0DH63UZ Insertion of Feeding Device into Stomach, Percutaneous Approach (ICD-10-PCS; principal; 2017-02-15 10:59)
DX: K94.23 Gastrostomy malfunction (principal); E43 Unspecified severe protein-calorie malnutrition; R64 Cachexia; Z68.1 Body mass index [BMI] 19.9 or less, adult; C14.0 Malignant neoplasm of pharynx, unspecified; D64.9 Anemia, unspecified; I95.9 Hypotension, unspecified; Y83.3 Surgical operation with formation of external stoma as the cause of abnormal reaction of the patient, or of later complication, without mention of misadventure at the time of the procedure; Z83.3 Family history of diabetes mellitus; Z82.49 Family history of ischemic heart disease and other diseases of the circulatory system; Z85.819 Personal history of malignant neoplasm of unspecified site of lip, oral cavity, and pharynx; Z80.9 Family history of malignant neoplasm, unspecified
CPT/HCPCS: 36415; 80053; 82040; 82962; 83735; 84100; 84478; 85025; 85610; 87081; 94640; 96361; 96365; 96367; C9113; J0690; J2250; J7131